=== PATIENT | male | born 1960 | race Caucasian/White ===

== ENCOUNTER 2017-04-05 14:17 | Emergency (ER) | payer OTHER ==
[~2017-04-05] VITALS: Ht 182.9 cm; Wt 85.4 kg
[2017-04-05 16:52] LABS: ADD MIUA? YES; BILIRUBIN NEGATIVE; BLOOD NEGATIVE; COLOR YELLOW ((YELLOW)); GLUCOSE (STRIP) NEGATIVE; KETONES NEGATIVE; LEUKOCYTES NEGATIVE; NITRITE NEGATIVE; PROTEIN (STRIP) NEGATIVE; SPECIFIC GRAVITY 1.028 (1.000-1.030); UROBILINOGEN 0.2 MG/DL (0.2-1.0)
[2017-04-05 16:58] LABS: BACTERIA NONE SEEN /HPF; EPITHELIAL CELLS RARE /HPF; MUCUS TRACE /LPF; RED BLOOD CELLS 0-5 /HPF (0-5); WHITE BLOOD CELLS 0-5 /HPF (0-5)
[2017-04-05] MEDS ORDERED: NORCO 5/3251 TABLET PO (18:12)
[2017-04-05 18:31] VITALS: BP 157/88
== END 2017-04-05 18:32 | disposition home or self-care (01) ==
LOC: EME 14:17
PROVIDERS: Physician Assistant
DX: R07.89 Other chest pain (principal); Z88.8 Allergy status to other drugs, medicaments and biological substances; Z88.5 Allergy status to narcotic agent; Z88.1 Allergy status to other antibiotic agents; Z88.0 Allergy status to penicillin; Z90.81 Acquired absence of spleen
CPT/HCPCS: 71020; 81003; 99281; 99284

== ENCOUNTER 2017-06-25 09:37 | Emergency (ER) | payer OTHER ==
[~2017-06-25] VITALS: Ht 182.9 cm; Wt 84.0 kg
[~2017-06-25 09:37] MED LIST: NORCO 5/3251 TABLET PO
[2017-06-25 10:07] VITALS: BP 121/69
[2017-06-25 12:41] LABS: HEMATOCRIT 35.9 % (38.0-50.0); MCH 32.1 PG (29.0-34.0); MCHC 34.3 G/DL (30.0-36.0); MCV 93.7 FL (86-99); MEAN PLAT.VOLUME 9.4 uM^3 (9.0-12.4); PLATELET COUNT 482 K/uL (156-360); RBC DIS.WIDTH-SD 47.7 % (39-53); RED BLOOD COUNT 3.83 M/uL (4.00-5.50)
[2017-06-25 12:52] LABS: CHLORIDE 107 mEq/L (99-109); SODIUM 136 mEq/L (136-147)
[2017-06-25 12:54] LABS: GLUCOSE 110 mg/dL (70-99)
[2017-06-25 12:55] LABS: ANION GAP 7 MEQ/L (2-14)
[2017-06-25 12:56] LABS: TOTAL BILIRUBIN 0.6 mg/dL (0.0-1.0)
[2017-06-25 12:58] LABS: ALKALINE PHOSPHATASE 99 IU/L (3-129); GFR ESTIMATE (CALCULATED) > 59 mL/min/
[2017-06-25 12:59] LABS: UREA NITROGEN (BUN) 22 mg/dL (9-23)
[2017-06-25 13:35] LABS: ADD MIUA? NO; BILIRUBIN NEGATIVE; BLOOD NEGATIVE; COLOR STRAW ((YELLOW)); GLUCOSE (STRIP) NEGATIVE; KETONES NEGATIVE; LEUKOCYTES NEGATIVE; NITRITE NEGATIVE; PROTEIN (STRIP) NEGATIVE; SPECIFIC GRAVITY 1.008 (1.000-1.030); UCUL ADDED? NO; UROBILINOGEN 0.2 MG/DL (0.2-1.0)
[2017-06-25] MEDS ORDERED: MOTRIN800 MG PO (13:51)
[2017-06-25] MEDS ORDERED: FLEXERIL5 MG PO (13:51)
== END 2017-06-25 14:20 | disposition home or self-care (01) ==
LOC: EME 09:37
PROVIDERS: Nurse Practitioner Family
DX: M25.562 Pain in left knee (principal); M62.831 Muscle spasm of calf; Z87.891 Personal history of nicotine dependence
CPT/HCPCS: 80053; 81003; 85027; 93971; 99281; 99282

== ENCOUNTER 2018-06-09 20:23 | Inpatient (IN) | payer OTHER ==
[~2018-06-09] VITALS: Ht 182.9 cm; Wt 86.7 kg
[~2018-06-09 20:23] MED LIST changes: +FLEXERIL5 MG PO; +MOTRIN800 MG PO
[2018-06-09 21:26] LABS: HEMOGLOBIN 13.3 G/DL (12.5-16.6); MCH 31.7 PG (29.0-34.0); MCHC 34.1 G/DL (30.0-36.0); MCV 93.1 FL (86-99); PLATELET COUNT 495 K/uL (156-360); RBC DIS.WIDTH-CV 14.6 % (11.8-14.6); RBC DIS.WIDTH-SD 50.1 % (39-53); RED BLOOD COUNT 4.19 M/uL (4.00-5.50)
[2018-06-09 21:39] LABS: ALBUMIN 4.1 g/dL (3.2-4.8); CHLORIDE 106 mEq/L (99-109); POTASSIUM 4.4 mEq/L (3.7-5.4); SODIUM 141 mEq/L (136-147)
[2018-06-09 21:42] LABS: GLUCOSE 94 mg/dL (70-99); TOTAL PROTEIN 7.2 g/dL (6.4-8.3)
[2018-06-09 21:44] LABS: TOTAL BILIRUBIN 0.4 mg/dL (0.0-1.0)
[2018-06-09 21:45] LABS: ALKALINE PHOSPHATASE 166 IU/L (3-129); CREATININE 0.9 mg/dL (0.6-1.3); GFR ESTIMATE (CALCULATED) > 59 mL/min/ (58.99-99999)
[2018-06-09 21:47] LABS: AST (GOT) 36 IU/L (2-34); UREA NITROGEN (BUN) 19 mg/dL (9-23)
[2018-06-09 21:48] LABS: ALT (GPT) 39 IU/L (3-49)
[2018-06-10] MEDS ORDERED: CALCIPOTRIENE60 G1 TP (02:01)
[2018-06-10] MEDS ORDERED: CREON 241 CAPSULE PO (02:01)
[2018-06-10] MEDS ORDERED: TAMSULOSIN HCL0.4 MG PO (02:01)
[2018-06-10] MEDS ORDERED: KENALOG,ARISTOC80 GM TP (02:02)
[2018-06-10] MEDS ORDERED: ADDERALL XR 3030 MG PO (02:02)
[2018-06-10] MEDS ORDERED: ADDERALL10 MG PO (02:02)
[2018-06-10] MEDS ORDERED: QVAR REDIHALE10.6 GM IH (02:03)
[2018-06-10] MEDS ORDERED: TRAMADOL HCL50 MG PO (02:04)
[2018-06-10] MEDS ORDERED: UREA198.6 GM TP (02:04)
[2018-06-10] MEDS ORDERED: MAGNESIUM250 MG PO (02:06)
[2018-06-10] MEDS ORDERED: ZINC50 M1 PO (02:06)
[2018-06-10] MEDS ORDERED: NEURONTIN300 MG PO (02:07)
[2018-06-10 04:08] VITALS: BP 143/87
[2018-06-10 07:28] VITALS: BP 129/80
[2018-06-10 11:14] VITALS: BP 142/84
[2018-06-10 15:41] VITALS: BP 154/84
[2018-06-10 19:07] VITALS: BP 125/73
[2018-06-10 23:38] VITALS: BP 128/74
[2018-06-11 06:50] LABS: BASOPHIL (%) 0.6 % (0-1); BASOPHIL COUNT 0.1 K/uL (0-0.1); EOSINOPHIL (%) 2.1 % (0-5); EOSINOPHIL COUNT 0.3 K/uL (0-0.3); HEMATOCRIT 39.8 % (38.0-50.0); HEMOGLOBIN 13.2 G/DL (12.5-16.6); IMMATURE GRANULOCYTE (%) 0.3 % (0.0-0.7); LYMPHOCYTE COUNT 2.8 K/uL (1.0-2.8); MCH 31.4 PG (29.0-34.0); MCHC 33.2 G/DL (30.0-36.0); MCV 94.5 FL (86-99); MONOCYTE COUNT 1.5 K/uL (0-0.8); NEUTROPHIL COUNT 9.9 K/uL (1.8-6.4); PLATELET COUNT 539 K/uL (156-360); RBC DIS.WIDTH-CV 14.6 % (11.8-14.6); RBC DIS.WIDTH-SD 51.1 % (39-53); RED BLOOD COUNT 4.21 M/uL (4.00-5.50); WHITE BLOOD COUNT 14.6 K/uL (4.1-10.2)
[2018-06-11 07:20] LABS: CHLORIDE 104 MEQ/L (99-109); CREATININE 0.9 MG/DL (0.6-1.3); GFR ESTIMATE (CALCULATED) > 59 mL/min/ (58.99-99999); POTASSIUM 4.4 MEQ/L (3.7-5.4); SODIUM 138 MEQ/L (136-147); UREA NITROGEN (BUN) 13 mg/dL (9-23)
[2018-06-11 07:22] LABS: GLUCOSE 145 mg/dL (70-99)
[2018-06-11 07:34] VITALS: BP 116/57
[2018-06-11] MEDS ORDERED: KEFLEX500 MG PO (12:17)
[2018-06-11] MEDS ORDERED: NORCO 5/3251 TABLET PO (12:21)
== END 2018-06-11 14:32 | disposition home or self-care (01) | DRG 602 ==
LOC: EME 20:23 → EDOF 06-10 02:06 → 3EAST 06-10 02:06
PROVIDERS: Hospitalist
DX: L03.115 Cellulitis of right lower limb (principal); G93.6 Cerebral edema; F11.20 Opioid dependence, uncomplicated; K86.1 Other chronic pancreatitis; F10.21 Alcohol dependence, in remission; D89.9 Disorder involving the immune mechanism, unspecified; N40.0 Benign prostatic hyperplasia without lower urinary tract symptoms; G89.4 Chronic pain syndrome; M25.561 Pain in right knee; M25.562 Pain in left knee; D47.3 Essential (hemorrhagic) thrombocythemia; K86.89 Other specified diseases of pancreas; Z90.81 Acquired absence of spleen; Z88.0 Allergy status to penicillin; Z88.1 Allergy status to other antibiotic agents; Y90.9 Presence of alcohol in blood, level not specified; Z82.49 Family history of ischemic heart disease and other diseases of the circulatory system; Z83.79 Family history of other diseases of the digestive system; Z84.1 Family history of disorders of kidney and ureter
CPT/HCPCS: 73564; 73701; 76882; 80048; 80053; 80202; 83605; 85025; 85027; 87040; 93971; 94640; 99281; 99285; J0690; J1170; J1650; J3010; J3370; J7030